=== PATIENT | male | born 1935 | race Caucasian/White ===

== ENCOUNTER 2017-11-12 10:56 | Emergency (ER) | payer OTHER, MEDICAID ==
[2017-11-12] MEDS ORDERED: CEPHALEXIN 500 MG CAP PO (12:00)
[2017-11-12] MEDS: TRIMETHOPRIM/SULFAMETHOX (DS) TAB PO (12:20)
[2017-11-12] MEDS: DIPHTH/TET/ACEL PERTUSS (ADULT) 0.5 ML VIAL IM* (12:21)
[2017-11-12] MEDS: CEFTRIAXONE 1 GM INJ IM (12:22)
[2017-11-12] MEDS: LIDOCAINE 1%/EPI 30 ML INJ INJ (12:42)
== END 2017-11-12 13:40 | disposition home or self-care (01) ==
LOC: FTE 10:56
DX: S80.11XA Contusion of right lower leg, initial encounter (principal); W22.8XXA Striking against or struck by other objects, initial encounter; Y92.9 Unspecified place or not applicable; Z23 Encounter for immunization; Z87.891 Personal history of nicotine dependence
CPT/HCPCS: 10140; 73590; 73610-RT; 73630; 90471; 90715; 96372; 99284-25

== ENCOUNTER 2017-11-14 12:31 | Emergency (ER) | payer OTHER, MEDICAID ==
[2017-11-14] MEDS: LIDOCAINE 2%/EPI (MDV) 20ML INJ INJ (15:44)
== END 2017-11-14 17:03 | disposition home or self-care (01) ==
LOC: FTE 12:31
DX: S80.11XA Contusion of right lower leg, initial encounter (principal); X58.XXXA Exposure to other specified factors, initial encounter; Y92.9 Unspecified place or not applicable; Z87.891 Personal history of nicotine dependence
CPT/HCPCS: 10140; 99284-25

== ENCOUNTER 2017-11-17 10:03 | Emergency (ER) | payer OTHER, MEDICAID | END 2017-11-17 11:20 | disposition home or self-care (01) | LOC: FTE 10:03 | DX: Z48.01 Encounter for change or removal of surgical wound dressing (principal); Z87.891 Personal history of nicotine dependence | CPT/HCPCS: 99281 ==

== ENCOUNTER 2017-11-20 10:07 | Emergency (ER) | payer OTHER, MEDICAID | END 2017-11-20 11:20 | disposition home or self-care (01) | LOC: FTE 10:07 | DX: Z48.01 Encounter for change or removal of surgical wound dressing (principal); F17.210 Nicotine dependence, cigarettes, uncomplicated | CPT/HCPCS: 99281 ==